=== PATIENT | female | born 1955 | race Hispanic/Latino ===

== ENCOUNTER 2021-07-17 11:41 | Emergency (ER) | payer MEDICARE, SELFPAY ==
--- NOTE | ~2021-07-17 | XR_ITS ---
XR hand RT min 3V DATE: 07/17/2021 12:07 INDICATION: Fall 2 days ago. Head injury, pain TECHNIQUE: 3 views COMPARISON: None FINDINGS: There is osteopenia. No fracture or dislocation, periosteal reaction or bone destruction, e rosive change or chondrocalcinosis. IMPRESSION: No fracture or dislocation Reviewed, dictated and finalized at location A. IMPRESSION: No fracture or dislocation
[2021-07-17 11:45] VITALS: BP 142/66; PULSE 68; RESP 18; TEMP 36.2; O2SAT 98
--- NOTE | 2021-07-17 12:23 | ED.GENADULT ---
HPI - General Adult General Chief complaint: Extremity Injury, Upper Stated complaint: FALL, R HAND INJURY Time Seen by Provider: 07/17/21 12:05 Source: RN notes reviewed History of Present Illness HPI narrative: Patient presents emergency department from home for right hand pain. Patient states that she fell 2 days ago forward and caught herself with her right hand since that time she had pain and swelling of the dorsal aspect of her right hand patient denies any other trauma or injury she denies any wrist or elbow pain she states she not taking thing for the pain today. The patient's family was present and helps to translate for the patient patient denies any numbness or tingling in the extremity Related Data Allergies Allergy/AdvReac Type Severity Reaction Status Date / Time Penicillins Allergy Unknown Verified 07/17/21 11:47 Review of Systems Review of Systems: Gen.: Denies fevers or chills Musculoskeletal: See HPI Neuro: Denies numbness, tingling, weakness Skin: Denies rash Endo: Denies DM PMFSH Past Medical History Medical History (Updated 07/17/21 @ 12:26 by Flaquito Alfaro DO) Patient denies significant medical history Social History Social History (Updated 07/17/21 @ 12:24 by Flaquito Alfaro DO) Smoking status: Never smoker Exam Narrative: APPEARANCE: No acute distress, nontoxic, resting in bed Eyes: EOMI HEENT: Normocephalic, atraumatic, RESPIRATORY: No respiratory distress MUSCULOSKELETAl: Swelling ecchymosis over the dorsal aspect of the right hand with tenderness patient there is no tenderness of the wrist with full range of motion of the wrist there is no tenderness at the base of the thumb pain with flexion at the second third and fourth MCP joints but patient does have full flexion-extension of all 5 MCP and IP joints, capillary refill less than 3 seconds radial pulse 2+ neurovascular intact NEURO: Awake and alert. Following commands, speech normal, no focal deficits SKIN:: Warm, dry. Normal Color no rash or lesions Course Course Emergency Course: Discussed with patient results of workup and diagnosis. Discussed need for follow-up with primary care, proper use of medication, and reasons to return to the emergency department. Patient understands and agrees to current treatment plan Vital Signs Vital signs: Vital Signs Temperature 97.2 F L 07/17/21 11:45 Pulse Rate 68 07/17/21 11:45 Respiratory Rate 18 10/15/21 11:45 Blood Pressure 142/66 H 07/17/21 11:45 Pulse Oximetry 98 07/17/21 11:45 Temperature 97.2 F L 07/17/21 11:45 Pulse Rate 68 07/17/21 11:45 Respiratory Rate 18 07/17/21 11:45 Blood Pressure 142/66 H 07/17/21 11:45 Pulse Oximetry 98 07/17/21 11:45 Medical Decision Making Vital Signs Vital Signs: Vital Signs Temperature 97.2 F L 07/17/21 11:45 Pulse Rate 68 07/17/21 11:45 Respiratory Rate 18 07/17/21 11:45 Blood Pressure 142/66 H 07/17/21 11:45 Pulse Oximetry 98 07/17/21 11:45 Temperature 97.2 F L 07/17/21 11:45 Pulse Rate 68 07/17/21 11:45 Respiratory Rate 18 07/17/21 11:45 Blood Pressure 142/66 H 07/17/21 11:45 Pulse Oximetry 98 07/17/21 11:45 Discharge Plan Discharge Clinical Impression: Contusion of hand, right Patient Disposition: Home, Self-Care Condition: Stable Instructions: Antibiotic Form, Contusion in Adults (ED), R.I.C.E. Treatment (ED) Additional Instructions: Return for increasing pain numbness or tingling in extremities or any other symptoms of concern Patient Language: Persian Prescriptions: New ibuprofen [IBU] 600 mg tablet 600 mg PO Q6H PRN (Reason: pain) Qty: 20 RF: 0 Follow-up/Referrals: Yohan,CAMILLE Scott [Primary Care Provider] - 2 Days Time of Disposition: 12:26
[2021-07-17] MEDS: IBUPROFEN 600 MG TABLET PO (12:34)
--- NOTE | 2021-07-17 12:40 | PC.NURSE ---
Pt. [place] suicide severity reassessment scale performed with translation via [employer] with their language. Pt. is a no risk.
[2021-07-17 12:50] VITALS: BP 150/84; PULSE 67; RESP 14; O2SAT 99
== END 2021-07-17 12:50 | disposition home or self-care (01) ==
LOC: ANHED 12:40
PROVIDERS: Emergency Provider Emergency Medicine; PCP Nurse Practitioner Family
DX: S60.221A Contusion of right hand, initial encounter (principal); W01.0XXA Fall on same level from slipping, tripping and stumbling without subsequent striking against object, initial encounter
CPT/HCPCS: 73130; 99283; A9270

== ENCOUNTER 2022-02-09 10:17 | Emergency (ER) | payer MEDICARE, MEDICAID, SELFPAY ==
--- NOTE | ~2022-02-09 | XR_ITS ---
EXAMINATION: [id number] INDICATION: Chest pain after fall TECHNIQUE: A frontal view of the chest and 3 views of the left ribs were obtained. COMPARISON: None. FINDINGS: The lungs are free of acute opacities. There is no pleural effusion or pneumothorax. The ca rdiomediastinal silhouette is normal. There are minimally displaced fractures of the left sixth and s eventh ribs. IMPRESSION: 1. Minimally displaced left sixth and seventh rib fractures. 2. No acute cardiopulmonary abnormality. Reviewed, dictated and finalized at location A.
[2022-02-09 10:20] VITALS: BP 132/67; PULSE 73; RESP 16; TEMP 36.6; O2SAT 95
[2022-02-09] MEDS: methocarbamoL 500 MG TABLET PO (12:15)
[2022-02-09] MEDS: LIDOCAINE 5% PATCH 1 PATCH TRANSDERM (12:15)
--- NOTE | 2022-02-09 12:31 | ED.FALL ---
HPI - Fall General Chief Complaint: Fall Stated Complaint: fall Time Seen by Provider: 02/09/22 11:18 Source: office supervisor History of Present Illness HPI Narrative: Patient is a 66-year-old peruvian speaking female here with left-sided rib pain after a fall 2 days ago. Patient states she slipped and fell in her kitchen, and struck the left side of her ribs on a chair on the way down. She denies head injury or loss of consciousness in the fall. Pain is not better after ibuprofen. States the pain was most severe 2 days ago, and has slightly improved since. She does note pain with deep respirations. No cough, shortness of breath, hemoptysis, contusion to chest, blood thinner use. Related Data Allergies Allergy/AdvReac Type Severity Reaction Status Date / Time Penicillins Allergy Unknown Verified 07/17/21 11:47 Review of Systems Review of Systems: Gen: Denies fevers or chills Eyes: Denies eye pain or visual change ENT: Denies congestion Respiratory: Denies shortness of breath or cough CV: Denies chest pain or palpitations GI: Reports abdominal pain nausea, emesis or diarrhea : denies burning, urgency, frequency or hematuria Musculoskeletal: Reports left rib pain. Neuro: Denies numbness, tingling, weakness or focal weakness Skin: Denies rash All systems reviewed & are unremarkable except as noted in HPI and below PMFSH Past Medical History Medical History Patient denies significant medical history Social History Social History (Updated 07/17/21 @ 12:24 by Flaquito Alfaro DO) Smoking status: Never smoker Exam Narrative: APPEARANCE: Well appearing, no pain in distress, well-nourished. Head: normocephalic and atraumatic. EYES: PERRLA/EOMI, conjunctivae clear NOSE: No nasal drainage EARS: External ear normal in appearance THROAT: Oropharynx is clear. Mucous membranes are moist. NECK: Supple. No adenopathy, no masses. RESPIRATORY: Airway patent, respirations nonlabored. Clear to auscultation bilaterally, no rales, rhonchi, wheezing. CARDIOVASCULAR: Regular rate and rhythm without murmurs, rubs, or gallops. ABDOMINAL: Normoactive bowel sounds. Soft, nontender, nondistended. No rebound tenderness or guarding. MUSCULOSKELETAL: No flail chest deformity. Tender to palpation over left lateral rib cage. Extremities are warm and well-perfused. Moves all extremities well. No edema. NEURO: Normal speech. No focal neurologic deficits. SKIN: No contusion over abdomen or chest wall. Skin is warm and dry. No rashes. PSYCHIATRIC: Normal affect/mood. Course Vital Signs Vital signs: Vital Signs Temperature 97.9 F 02/09/22 10:20 Pulse Rate 73 02/09/22 10:20 Respiratory Rate 16 02/09/22 10:20 Blood Pressure 132/67 02/09/22 10:20 Pulse Oximetry 95 02/09/22 10:20 Temperature 97.9 F 02/09/22 10:20 Pulse Rate 74 02/09/22 13:02 Respiratory Rate 20 02/09/22 13:02 Blood Pressure 145/68 H 02/09/22 13:02 Pulse Oximetry 100 02/09/22 13:02 MDM - Fall MDM Narrative Medical decision making narrative: 66-year-old female here with left-sided rib pain after a fall 2 days ago. X-ray with evidence of mildly displaced sixth and seventh rib fractures on the left. No hypoxia, vital signs stable. Patient has no flail chest deformity, no bruising/abdominal pain to suggest intra-abdominal injury. Her pain was completely resolved after methocarbamol and lidocaine patch in the ED. Provided with incentive spirometer for patient to use at home, did discuss return precautions with patient. She voiced understanding. Discharge Plan Discharge Clinical Impression: Fracture of rib Patient Disposition: Home, Self-Care Condition: Stable Instructions: Antibiotic Form, Rib Fracture (ED) Additional Instructions: Please use the incentive spirometer as directed. Please take the medication twice a day as needed for your pain, and use the lidocaine
[2022-02-09 13:02] VITALS: BP 145/68; PULSE 74; RESP 20; O2SAT 100
== END 2022-02-09 13:04 | disposition home or self-care (01) ==
PROVIDERS: Emergency Provider Emergency Medicine; PCP Nurse Practitioner Family
DX: S22.42XA Multiple fractures of ribs, left side, initial encounter for closed fracture (principal); W01.190A Fall on same level from slipping, tripping and stumbling with subsequent striking against furniture, initial encounter
CPT/HCPCS: 71101; 99283; A9270